=== PATIENT | female | born 1980 | race Caucasian/White ===

== ENCOUNTER 2016-12-16 05:40 | Inpatient (IN) | payer OTHER ==
[~2016-12-16] VITALS: Ht 167.6 cm; Wt 91.5 kg
[2016-12-16] VITALS (16 sets, daily range): BP systolic 130–150; BP diastolic 87–103; PULSE 60–84; RESP 16–22; O2SAT 96–100
--- NOTE | 2016-12-16 06:49 | NUR ---
Admit Patient arrived via ambulance from [facility] at 0630. A&Ox3, MARINELLI, ambulates independently. Patient stable on room air, denies current chest pain or shortness of breath. Admit documentation completed. Hospitalist paged for orders and report given to day shift RN.
[2016-12-16] MEDS ORDERED: Heparin 25K Unit/500mL 0.45 NS 25,000 UNIT in IV Premix 1 EACH IV SCH (07:00)
[2016-12-16] MEDS ORDERED: MeTOProlol 1 mg/mL 5 mL Inj IVPUSH STA (09:03)
[2016-12-16] MEDS ORDERED: Senna-Docusate 8.6-50 mg Tablet PO PRN (09:05)
[2016-12-16] MEDS ORDERED: Polyethylene Glycol (PEG) 17 Gm Powder PO PRN (09:05)
[2016-12-16] MEDS ORDERED: Ondansetron 2 mg/mL 2 mL Inj IVPUSH PRN ×2 (09:05→18:55)
[2016-12-16] MEDS ORDERED: Alum-Mag Hydrox-Simeth 30 mL Suspension PO PRN (09:05)
[2016-12-16] MEDS ORDERED: Atropine 1 mg/10 mL (Code) Syringe IVPUSH PRN ×2 (09:05→18:55)
--- NOTE | 2016-12-16 09:05 | NUR ---
Social Work- Initial Assessment Data: See Initial Assessment and DPOA Intervention for additional information. Pt is a 36 year old female admitted for NSTEMI. Pt screened in for assessment due to multiple providers involved in care. Pt's insurance is [employer] [facility]. Pt's PCP is Gina Harris at [facility]. Pt's readmit risk score is not listed at this time. SW met with pt and spouse at bedside regarding discharge plan, SW role explained. Pt alert and oriented x3. Pt's capacity for self-care assessed. Pt resides in [place] with her family ( and two children ages 16 and 14) in a home. Pt is independent with ADLs and self-care. No concerns identified. 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 Pt has no DPOA on file, Pt was provided DPOA paperwork at bedside. Pt will discharge home with spouse to transport via POV when medically cleared. SW provided phone number and plan on whiteboard. All agreeable to plan. Assessment: Pt who is independent with ADLs and self-care Plan: Pt will discharge home with spouse to transport via POV when medically cleared. No d/c needs anticipated. SW will follow. QIANA Mendez Addendum: 12/16/16 at 0908 by JUSTYNA BROWN Amended: Links added.
[2016-12-16 10:37] LABS: Magnesium 1.9 mg/dL (1.6-2.6)
--- NOTE | 2016-12-16 12:15 | CONS ---
[address] [address] CONSULTATION REPORT PATIENT: SANDRA SHAFER : 1980 MR#: [id number] ADMIT: 12/16/2016 JOB ID: [id number] DATE OF SERVICE: 12/16/2016 CHIEF COMPLAINT: Hospitalist team has consulted us on this patient given elevated troponin and chest pain. HISTORY OF PRESENT ILLNESS: The patient is a 36-year-old woman with no significant past medical history. 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 This was described as a heaviness and then her arms felt heavy and numb. Some radiation to the back. She had no significant shortness of breath and did not notice palpitations, presyncope, or syncope. No diaphoresis, nausea, or vomiting. She tried to see if the pain went away with stretching, however it did not resolve, and ultimately she went to [place] ED. In the ED she had no acute EKG changes, however her troponin was elevated, and because of this she was transferred here for further assessment. She says in the ED she was given aspirin and nitroglycerin, which did not help. Finally morphine did help with the pain. At this time she still has some residual discomfort but it is not too significant. She again denies any problems with increased shortness of breath. She tells me while walking out of her house to get to the car to go to the ED she had no chest worsening of the chest discomfort. PAST MEDICAL HISTORY/PROBLEM LIST: No medical problems. MEDICATIONS: Include an IUD. SOCIAL HISTORY: Former tobacco use but none now. No significant alcohol use. FAMILY HISTORY: Two grandparents with bypass surgery. She said her father had high blood pressure and drank, was an alcoholic that at age 57, but father did not have coronary disease and had hypertension. REVIEW OF SYSTEMS: Overall health: No fevers, chills, night sweats, or weight loss. GI: No problems with ulcers or blood in her stool. : No dysuria or hematuria. Pulmonary: No history of asthma or increased shortness of breath. Endocrine: No heat or cold intolerance. Musculoskeletal: No acute issues. Heme: No easy bruising or bleeding. Neuro: No chronic headaches. ENT: No difficulty swallowing. No hearing difficulties. Ophtho: No acute vision changes. Psych: There has been some stress related to her daughter not being selected for the varsity soccer team and her daughter is very good, participated in select teams, and her tells me that this may have been more stressful than they want to admit. All other review of systems on a 12-point review systems is negative. PHYSICAL EXAMINATION: Blood pressure 136/98. She is afebrile. Heart rate 60. Sats are 99% on room air. General: In no acute distress. Speaking in full sentences, without apparent shortness of breath. Head and neck: Normocephalic, atraumatic. Neck: No obvious JV distention. Heart: Regular rate and rhythm, without murmurs, gallops, or rubs appreciated. Lungs: Clear to auscultation. Back: No CVA tenderness to palpation. Abdomen: Soft, nontender. Extremities: Warm, no appreciable edema. Vascular: Carotids without bruits appreciated. Skin: No breakdown appreciated. Neurologic: Alert and oriented x3. Gait is not tested. Psych: Appropriate mood and affect. ENT: Hearing grossly intact. Ophtho: Vision intact. EKG is within normal limits. LABORATORIES: Labs show a sodium 140, potassium 3.7, chloride and bicarb 107 and 29 respectively. BUN and creatinine 17 and 0.6. LFTs within normal limits. TSH 2.83. BNP is normal. Troponin initially was 0.01 but trended upwards to 0.44. D-dimer not elevated. White count 9.1, H and H 11.7 and 33.7, platelets of 191,000. IMPRESSION: The patient had onset of typical chest pain yesterday not relieved with nitroglycerin, not associated with any acute EKG changes. A D-dimer was negative. Troponins did trend upward. She is feeling somewhat better at this time. PLAN: 1. I would continue on the heparin for now. We can keep her n.p.o. at this moment. 2. I think getting an echocardiogram will be important as we need to rule out a stress cardiomyopathy. I did discuss with the family that even if this is the case unless it is an unusual distribution we might proceed with cardiac catheterization to complete our assessment. However, I would I would like to get the echocardiogram first before we make any decisions regarding further assessment. I spent 30 minutes reviewing the patient's records, speaking with her, and discussing with the family. ALEKS
[2016-12-16] MEDS ORDERED: Heparin 10,000 Unit/1,000 mL NS Premix IV ONE (13:53)
[2016-12-16] MEDS ORDERED: Heparin 1,000 Units/500 mL NS Premix IV ONE (13:53)
[2016-12-16] MEDS ORDERED: Heparin 1,000 Unit/mL 10 mL Inj ONE (13:53)
--- NOTE | 2016-12-16 14:14 | PCM.HPMED ---
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 She states the chest pain pain currently rated 2 out of 10 feels more like pressure across her chest from armpit to armpit and radiates to her back. The patient also notes associated tingling and heaviness in her arms bilaterally which she states is the actual reason for her presentation to [facility]. The patient denies any changes in pain with position or deep inspiration. It was constant since onset and would be rated at 5 out of 10 at its worse. She has never had a previous episode of chest pain similar to this. She admits to vomiting two times on her way to the [facility] ER but denies bright red blood or coffee ground emesis. She denies diaphoresis, shortness of breath, cough, headache, or generalized weakness. She admits to recent travel to [place] but denies any leg swelling, lower extremity edema or tenderness. She uses a Mirena IUD for contraception and denies smoking or illicit or recreational drug use. She denies any new stressors or anxiety within the last month. She also denies any new workout routines that targeted towards her upper body. She has previously never noticed chest pain associated with exertion. At [facility] the patient was noted to have elevated troponins without associated ischemic ST or T-wave changes on ECG. At [facility] the patient was given sublingual nitroglycerin and the patient states that this did not really improve her chest pain. The patient was also given a dose of morphine which the patient states did improve her chest pain. The patient was transferred to [facility] for further cardiac evaluation. Review of Systems: A comprehensive review of systems was obtained and all negative except for what is included in the history of present illness. 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 Hx Alcohol Use: No Hx Substance Use: No Hx Tobacco Use: Yes Smoking Status: Former Smoker (quit 2008) Years of Smokin Living Arrangement: with Family Exam Vital Signs Vital Sign - Last Date Time Temp Pulse Resp B/P Pulse Ox O2 Delivery O2 Flow Rate FiO2 12/16/16 12:20 36.8 61 16 150/103 98 Room Air Exam General: Normal body habitus middle-aged female alert and cooperative in no acute distress Eyes: Pupils equal round and reactive to light, extraocular motion intact, anicteric sclera, noninjected conjunctiva HENT: Normocephalic atraumatic, moist mucous membranes without central cyanosis , oropharynx clear without purulent exudate or cobblestoning mucosa Neck: Supple, trachea midline, without thyromegaly, with mild JVD Cardiovascular: Regular rate and regular rhythm, S1-S2 present, no S3-S4, without murmurs rubs or gallops noted Lungs: Clear to auscultation bilaterally without wheezing rales or rhonchi Abdomen: Soft, nontender, nondistended, tympanic to percussion, normal active bowel sounds, without organomegaly Extremities: No cyanosis clubbing or edema noted, pulses intact bilaterally at dorsalis pedis and radial : No Win catheter in place Skin: Warm and dry Neuro: Nonfocal neurologic exam Psych: Normal mood and affect Lab and Diagnostics 12-lead ECG EKG from [facility] shows patient in normal sinus rhythm without ST changes or T-wave abnormalities consistent with ischemic event Assessment & Plan Sheri Kulkarni is a 36 year old female that presents with chest pressure that started at approximately 12:30 AM in the morning on December 15 while she was watching 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 # Acute Non-ST elevation myocardial infarction, present on admission - Differentials include viral Myocarditis, Stress Cardiomyopathy - Initial troponins and CK-MB are elevated and will be trended every 6 hours - Drug tox both urine and serum ordered for possible alternative explanation of early onset coronary artery disease - LUCÍA score of 3 because of her family HX, severe angina, and positive cardiac marker. Puts her at a 13% risk at 14 days of all-cause mortality, new or recurrent MS, severe recurrent ischemia requiring urgent revascularization. - Wells Score of 0, makes pulmonary embolus unlikely - Nitroglycerin PRN for pain, morphine when necessary if Nitroglycerin doesn't relieve symptoms. - ECGs available when necessary - Cardiology consult is active. - Lipid Panel and HgbA1C pending - Blood pressure management with metoprolol 5mg IV q6 to also decrease cardiac work, as well as enalapril 0.625 mg IV every 8 - The patient was initially started on a heparin drip at [facility] and this was continued - Patient has already received ASA 81 mg 4 while at [facility] - Initiate high-dose atorvastatin for stabilization - Echocardiogram ordered and pending to evaluate for wall motion abnormalities # Acute hypertension - Blood pressure management with metoprolol 5mg IV q6 to also decrease cardiac work, as well as enalapril 0.625 mg IV every 8 DVT prophylaxis: Heparin GGT GI prophylaxis: Not indicated at this time CODE STATUS full The patient is admitted to inpatient status with expected length of stay greater than 2 nights given presenting symptoms, likely diagnosis, possible complications, required treatment. Pain Evaluation: Adequate Pain Control GI Prophylaxis: Not indicated VTE Prophylaxis Indicated: Meets Criteria for Anticoag Therapy VTE Prophylaxis: Other (Heparin GGT) Resuscitation Status: CPR: Attempt Resuscitation Time spent 55 minutes Attending Statement I have seen and evaluated the patient at bedside in addition to directly supervising care provided by resident physician, Dr King. I agree with above documentation. Scot King DO Dec 16, 2016 14:14 Brian Fernando DO Dec 16, 2016 17:06
[2016-12-16] MEDS ORDERED: 0.9% Sodium Chloride 1,000 ML IV ONE (15:22)
[2016-12-16] MEDS ORDERED: diphenhydrAMINE 25 mg Capsule PO ONE (15:25)
[2016-12-16 15:30] LABS: BASOPHILS % (AUTO) 0.5 % (0-3); EOSINOPHILS % (AUTO) 1.8 % (0-5); MONOCYTES % (AUTO) 8.2 % (4-12); Mean Corpuscular Hemoglobin 28.3 pg (27.0-35.0); Mean Corpuscular Volume 84.5 fL (81-100); NEUTROPHILS % (AUTO) 54.9 % (40-74); Platelet Count 176 bil/L (150-400)
[2016-12-16] MEDS ORDERED: MeTOProlol 1 mg/mL 5 mL Inj IVPUSH SCH (15:30)
[2016-12-16] MEDS ORDERED: fentaNYL-PF 50 mCg/mL 2 mL Inj ONE (15:57)
[2016-12-16 16:07] LABS: TROPONIN T 0.086 ug/L (0.0-0.011)
[2016-12-16] MEDS: Sodium Chloride LOK Flush 10 mL Syringe IVFLUSH SCH (16:30)
--- NOTE | 2016-12-16 16:55 | NUR ---
Transfer to Legislative Aide Pt transferred to laboratory sample carrier for angiogram. Report called to [facility] for recovery. Addendum: 12/16/16 at 1657 by VANIA MENEZES RN Pt transported at 1550
--- NOTE | 2016-12-16 17:29 | NUR ---
Received Received from labor and delivery nurse about 1650. VSS. Denies pain. Tele SR. Right groin without bleeding or hematoma. Peripheral pulses palp. IVF infusing per order. to bedside. Continue to monitor per orders.
--- NOTE | 2016-12-16 17:32 | DRSVH ---
[facility] [address] [place] [address] Echocardiogram Report Name: SANDRA SHAFER MStudy Date : 12/16/2016 Height: 66 in Hospital Exam Location: [facility] Weight: 201 lb Gender: Female BSA: 2.0 m2 : 1980 Age: 36 yrs BP: 136/98 mmHg Reason For Study: Chest Pain Ordering Physician: Fariba Melendez Performed By: Dena Mcintyre Referring Physician: ZITA MELENDEZ Interpretation Summary 1. Normal left ventricular size, wall thickness and systolic function with an estimated EF of 60-65% 2. Normal right ventricular size and systolic function. 3. No valvular pathology appreciated. There is no old study for comparison Procedure: A two-dimensional transthoracic echocardiogram with color flow and Doppler was performed. The study quality was technically adequate. There is no prior echocardiogram noted for this patient. The patient was in normal sinus rhythm during the exam. Left Ventricle: The left ventricle is normal in size. Left ventricular wall thickness is normal. The ejection fraction is estimated to be 60-65%. No obvious wall motion abnormalities appreciated. Right Ventricle: The right ventricle is grossly normal size. The right ventricular systolic function is normal. Atria: The left atrium is mildly dilated. The right atrium is normal in size. The interatrial septum is intact with no evidence for an atrial septal defect. Mitral Valve: The mitral valve is normal in structure and function. There is trace mitral regurgitation. Aortic Valve: The aortic valve is trileaflet. The aortic valve opens well. There is no aortic regurgitation. Tricuspid Valve: The tricuspid valve is normal in structure and function. There is trace tricuspid regurgitation. The right ventricular systolic pressure is estimated at 27 mmHg assuming a right atrial pressure of 3 mm Hg. Pulmonic Valve: The pulmonic valve is normal in structure and function. There is trace pulmonic regurgitation. Great Vessels: The aortic root is normal size. The ascending aorta is at the upper limits of normal in size. The IVC is of normal diameter and collapses greater than 50% with a sniff. This suggests a low right atrial pressure of 3 mm Hg. Pericardium/ Pleura There is no pericardial effusion. There is no pleural effusion. MMode/2D Measurements & Calculations LVIDd: 4.8 cm RA long axis LVOT diam: 1.5 cm LVIDs: 3.3 cm LA A2 area: 19.1 cm asc Aorta Diam FS: 30.8 % LA A4 area: 24.8 cm RA area IVSd: 1.0 cm LA length (vol) Ao Arch Diam (Prox LVPWd: 0.89 cm : 12.2 cm Trans): 3.3 cm LA vol: 74.5 ml RA vol LA vol index : 24.1 ml RA : 12.0 mm2 IVC diam: 2.0 cm LV elkins. diameter/BSA LV sys. diameter/BSA TAPSE: 2.3 cm (cm/m^2): 2.4 (cm/m^2): 1.6 Doppler Measurements & Calculations Ao V2 max: 136.8 cm/sec MV E max stu MV E/A: 1.7 TR max stu Ao max P.5 mmHg : 98.9 cm/sec : 230.5 cm/sec Ao mean P.2 mmHg MV A max stu TR max PG LVOT Max Stu : 57.0 cm/sec : 21.3 mmHg : 102.6 cm/sec PA V2 max : 69.9 cm/sec CAYETANO(I,D): 1.3 cm PA mean PG sev ratio: 0.75 : 1.1 mmHg MV dec time: 0.16 sec Ao V2 mean LV V1 max PG PA V2 mean : 98.7 cm/sec : 50.2 cm/sec Ao V2 VTI: 31.2 cmLV V1 VTI PA pr(Accel) : 23.5 cm : 26.6 mmHg CAYETANO(V,D): 1.3 cm2 CAYETANO indexed to [facility] (cm^2/m^2): 0.66 Reading Physician:05:32 PM
--- NOTE | 2016-12-16 18:52 | NUR ---
Transfer No change in assessment. VSS. States mild soreness at groin site. Report to Gretta Khan RN. Transported to 2030 with and all belongings in no distress at 1830. Last WEI check done at bedside.
[2016-12-16] MEDS ORDERED: 0.9% Sodium Chloride 250 ML BOLUS IV PRN (18:55)
[2016-12-16] MEDS ORDERED: Sodium Chloride LOK Flush 10 mL Syringe IVFLUSH PRN (18:55)
[2016-12-16] MEDS ORDERED: 0.9% Sodium Chloride 600 ML IV ONE (18:55)
[2016-12-16] MEDS ORDERED: HYDROcodone-APAP 5-325 mg Tablet PO PRN (18:55)
--- NOTE | 2016-12-16 19:47 | CS94 ---
[address] [address] DIAGNOSTIC CARDIAC CATHETERIZATION PATIENT: SANDRA SHAFER : 1980 MR#: [id number] ADMIT: 12/16/2016 JOB ID: [id number] SERVICE DATE: 12/16/2016 PROCEDURES PERFORMED: Left heart catheterization with coronary angiography. INDICATIONS: This is a 36-year-old woman who presented with chest pain, elevated troponin, and no EKG changes. No obvious focal wall motion abnormalities on echocardiogram. DESCRIPTION OF PROCEDURE: Informed consent was obtained. The patient was brought to catheterization laboratory. Bilateral groins were prepped and draped in the usual sterile fashion. The right femoral artery was anesthetized with lidocaine. Using modified Seldinger technique and a micropuncture kit, access was obtained and a 5-Tongan sheath was advanced. Next, a 5-Tongan JL4 catheter was advanced over a wire and used to cannulate the left coronary artery and angiographic views obtained. This catheter was removed and a 5-Tongan JR4 catheter was advanced over a wire and used to cannulate the right coronary artery and angiographic views obtained. This catheter was removed and a 5-Tongan angled pigtail catheter was advanced to left ventricle under fluoroscopic guidance and left ventriculography was performed with the camera in the LOPEZ position. Next, left ventricular pressure tracings were obtained, and following pullback aortic pressure tracings were obtained. The case was ended. Hemostasis was achieved via manual compression and no complications. FINDINGS: CORONARIES: This is a left-dominant system. LAD: The left anterior descending artery has some minor narrowing at its ostium which may be within normal limits. The left anterior descending artery continues down, without evidence of obstructive lesions. The principal diagonal has no evidence of obstructive disease. Circumflex: The circumflex artery this is a dominant vessel. It gives rise to a first obtuse marginal branch which has no evidence of disease. The second obtuse marginal branch has a tubular segment of stenosis which does not appear hemodynamically significant. It appears in the range of 40%. It appears mostly smooth, but mildly ectatic. The vessel distal to this looks somewhat larger. There was LUCÍA-3 flow through this. The left PDA has no evidence of obstructive disease. RCA: The right coronary artery is a nondominant vessel. Left ventriculography: This shows overall preserved LV systolic function. Left ventricular end-diastolic pressure (post contrast) 20 mm with no gradient on pullback. IMPRESSION: 1. Left dominant system with angiographically normal coronary arteries except for a small tubular segment in the second obtuse marginal branch which is not flow limiting. This could be related to plaque and her symptoms could be related to associated spasm. Alternatively this could be related to a small area of spontaneous dissection (type 2A), but it is not flow limiting. Although further assessment could be considered, OCT given it higher resolution would be the tool of choice (this is not available). Alternatively, this could be an incidental finding with an underlying microvascular issue leading to her pain and elevated troponins. 2. Normal left ventricular size and systolic function. PLAN: We will treat her medically with Plavix and aspirin, statin and treat her blood pressure. We will monitor and see how she does through the next several days and trend the troponins to look for a rapid decrease. ALEKS
[2016-12-16] MEDS ORDERED: MeTOProlol 1 mg/mL 5 mL Inj IVPUSH PRN (20:25)
[2016-12-17 02:45] VITALS: BP 138/91; PULSE 75; RESP 16; O2SAT 98
[2016-12-17 02:53] LABS: BASOPHILS % (AUTO) 0.5 % (0-3); EOSINOPHILS % (AUTO) 2.1 % (0-5); MONOCYTES % (AUTO) 8.5 % (4-12); Mean Corpuscular Hemoglobin 28.4 pg (27.0-35.0); Mean Corpuscular Volume 85.3 fL (81-100); NEUTROPHILS % (AUTO) 57.3 % (40-74); Platelet Count 175 bil/L (150-400)
[2016-12-17 05:35] VITALS: PULSE 82
--- NOTE | 2016-12-17 06:02 | NUR ---
GROIN SITE Pt's groin site tender, shows no signs of hematoma. Indep. in room, VSS, no issues noted throughout the night.
[2016-12-17 07:29] VITALS: BP 118/85; PULSE 79; RESP 17; O2SAT 97
[2016-12-17] MEDS: Sodium Chloride LOK Flush 10 mL Syringe IVFLUSH SCH ×2 (07:42)
[2016-12-17 09:02] VITALS: PULSE 97
[2016-12-17] MEDS ORDERED: CLOP75TA3 PO (10:19)
[2016-12-17] MEDS ORDERED: ATOR20TA PO (10:19)
[2016-12-17] MEDS ORDERED: ASPI-973 PO (10:19)
[2016-12-17] MEDS ORDERED: METO25TA6 PO (10:19)
--- NOTE | 2016-12-17 10:27 | PCM.DIMED ---
Jai Maradiaga DO 12/17/16 1027: Discharge Instructions Date of Service Dec 17, 2016 Dates of Hospitalization Dec 16, 2016 at 06:27 Discharge Diagnosis Discharge Diagnosis Acute Non-ST elevation myocardial infarction Acute hypertension Medication Instructions Additional med instructions We would like you to take the following medications: Metoprolol 25 mg twice per day Aspirin 81 mg daily Plavix 75 mg daily Atorvastatin 20 mg daily Test Results Test Results Your echocardiogram showed no acute findings Your coronary catheterization appeared normal aside from a small tubular defect which was not flow-limiting Diet Discharge Diet: No restrictions Activity Discharge Activity: No restrictions Call your provider Call your provider for: Fever or Chills, Shortness of breath, Bleeding, Chest pain, Vomitting, Excessive diarrhea, Weakness (unilateral) Patient Instructions Patient Instructions All imaging modalities and procedural interventions at the hospital have not shown any specific reason for your chest pain or elevation in heart enzymes. Per cardiology this is possibly due to vasospasm or minor occlusion, however there is no intervention that is required at this time. Please take the medications listed above as described and follow-up with cardiology as appropriate. Follow-up plan Follow-up with cardiology within the next week for assessment and titration of medications as needed. Follow-up Provider: Kelli Navarro MD Follow-up with PCP in: 1 week Brian Fernando DO 12/17/16 1301: Discharge Instructions Attending's Statement Read and agree Jai Maradiaga DO Dec 17, 2016 10:27 Brian Fernando DO Dec 17, 2016 13:01
--- NOTE | 2016-12-17 11:20 | NUR ---
Social Work: Readiness for Discharge/Multidisciplinary Rounds D: EMR reviewed. Pt is on day 1 of hospitalization. Pt discussed in multidisciplinary rounds and is medically stable for discharge home today. No SW needs identified, no MD orders received. Pt's spouse to provide transport home via POV today. SW will continue to follow until time of discharge. A: Pt who is independent at baseline P: Pt to discharge home with spouse via POV. No SW needs identified, no MD orders received. SW will continue to follow until time of discharge. QIANA De Luna
--- NOTE | 2016-12-17 12:03 | NUR ---
Discharge 1203 - She discharged at this time with her and belongings. Before discharge her IV and telemetry were discontinued intact. Her IV site bled through the first gauze, pressure was applied, and a new gauze dressing was placed. Discussed and gave her the discharge paperwork (four hard copies of prescriptions, care notes, and instructions). She and her expressed concerns about how much stress she is under at the moment. Discussed ways of lowering stress with her such as yoga, meditation, etc. Answered her and her 's questions. They were escorted down to the outside of the hospital by this nurse. They thanked staff for their care.
--- NOTE | 2016-12-17 12:58 | NUR ---
Social Work: Discharge D: EMR reviewed. Pt is on day 1 of hospitalization. Pt discussed in multidisciplinary rounds and is medically stable for discharge home today. No SW needs identified, no MD orders received. Pt's spouse to provide transport home via POV today. A: Pt who is independent at baseline P: Pt discharged home with spouse today via POV. No SW needs identified, no MD orders received. QIANA De Luna
--- NOTE | 2016-12-17 19:58 | PCM.DC.MED ---
Discharge Summary Date of Service Dec 17, 2016 Dates of Hospitalization Date of Hospital Admission Dec 16, 2016 at 06:27 Date of Discharge: Dec 17, 2016 Providers: Admitting Physician: Jimy Vieyra MD Primary Care Physician: Gina Harris MD Attending Physician: Brian Fernando DO Diagnosis at Time of Discharge Diagnosis at Time of Discharge Acute Non-ST elevation myocardial infarction Acute hypertension Consultations Cardiology: Dr. Navarro Procedures ECG 12 Lead EKG from [facility] shows patient in normal sinus rhythm without ST changes or T-wave abnormalities consistent with ischemic event Cardiac Echo Impression Echocardiogram Interpretation Summary 1. Normal left ventricular size, wall thickness and systolic function with an estimated EF of 60-65% 2. Normal right ventricular size and systolic function. 3. No valvular pathology appreciated. There is no old study for comparison Reading Physician:05:32 PM Invasive Procedures DIAGNOSTIC CARDIAC CATHETERIZATION IMPRESSION: 1. Left dominant system with angiographically normal coronary arteries except for a small tubular segment in the second obtuse marginal branch which is not flow limiting. This could be related to plaque and her symptoms could be related to associated spasm. Alternatively this could be related to a small area of spontaneous dissection (type 2A), but it is not flow limiting. Although further assessment could be considered, OCT given it higher resolution would be the tool of choice (this is not available). Alternatively, this could be an incidental finding with an underlying microvascular issue leading to her pain and elevated troponins. 2. Normal left ventricular size and systolic function. 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 She states the chest pain pain currently rated 2 out of 10 feels more like pressure across her chest from armpit to armpit and radiates to her back. The patient also notes associated tingling and heaviness in her arms bilaterally which she states is the actual reason for her presentation to [facility]. The patient denies any changes in pain with position or deep inspiration. It was constant since onset and would be rated at 5 out of 10 at its worse. She has never had a previous episode of chest pain similar to this. She admits to vomiting two times on her way to the [facility] ER but denies bright red blood or coffee ground emesis. She denies diaphoresis, shortness of breath, cough, headache, or generalized weakness. She admits to recent travel to [place] but denies any leg swelling, lower extremity edema or tenderness. She uses a Mirena IUD for contraception and denies smoking or illicit or recreational drug use. She denies any new stressors or anxiety within the last month. She also denies any new workout routines that targeted towards her upper body. She has previously never noticed chest pain associated with exertion. At [facility] the patient was noted to have elevated troponins without associated ischemic ST or T-wave changes on ECG. At [facility] the patient was given sublingual nitroglycerin and the patient states that this did not really improve her chest pain. The patient was also given a dose of morphine which the patient states did improve her chest pain. The patient was transferred to [facility] for further cardiac evaluation. 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 Acute Non-ST elevation myocardial infarction, present on admission - Differentials include viral Myocarditis, Stress Cardiomyopathy - Initial troponins and CK-MB are elevated - Cardiology consulted Dr. Navarro to make recommendations - Aspirin 81 mg daily - Atorvastatin 20 mg - Echocardiogram shows normal ejection fraction, other results as above - Plavix 75 mg daily Acute hypertension -Metoprolol 25 mg twice a day for blood pressure management Exam Vital Signs (Last) Date Time Temp Pulse Resp B/P Pulse Ox O2 Delivery O2 Flow Rate FiO2 12/17/16 09:02 97 12/17/16 07:29 36.8 17 118/85 97 Room Air Exam General: No acute distress, well-developed, well-nourished Head: Normocephalic, atraumatic. External ears without defect. Eyes: Pupils equal, round, and reactive to light and accommodation. Anicteric sclerae, moist conjunctivae. Neck: Normal range of motion, no lymphadenopathy noted Cardiovascular: Regular rate and rhythm with no murmurs, rubs, or gallops appreciated Pulmonary: Clear to auscultation bilaterally with no crackles, wheezes, or rhonchi. Normal respiratory effort with no use of accessory muscles. Abdomen: Bowel tones present. Soft, nontender, nondistended. Extremities: No clubbing, cyanosis, edema Skin: Normal temperature, turgor, and texture; no rash, ulcers, or subcutaneous nodules appreciated. Neurological: Cranial nerves grossly intact. Reflexes, coordination, and sensory function within normal limits. Normal muscle strength, tone, and bulk. Psychiatric: Normal mood and affect. Alert and oriented to person, place, and time Test 12/16/16 09:33 12/16/16 12:55 12/16/16 15:00 12/17/16 02:40 Hemoglobin A1c 5.3% (4.8-5.6) Magnesium Level 1.9mg/dL (1.6-2.6) Triglycerides Level 77mg/dL (0-149) Cholesterol Level 196mg/dL (100-199) LDL Cholesterol, Calculated 129.600mg/dL (0-99) VLDL Cholesterol 15.400mg/dL HDL Cholesterol 51mg/dL (>39) Cholesterol/HDL Ratio 3.84 (0.0-4.4) Thyroid Stimulating Hormone (TSH) 2.500uIU/mL (0.450-4.500) Activated Partial Thromboplast Time 37.8sec (22.8-33.0) Total Creatine Kinase 99U/L (21-215) Creatine Kinase MB 7.4ng/mL (0.0-5.3) Creatine Kinase MB % 7.5% (0.0-5.0) White Blood Count 8.0th/mm3 (3.8-10.1) Red Blood Count 4.02mil/mm3 (3.90-5.20) Hemoglobin 11.4g/dL (12.0-15.6) Hematocrit 34.3% (35.0-46.0) Mean Corpuscular Volume 85.3fL (81-100) Mean Corpuscular Hemoglobin 28.4pg (27.0-35.0) Mean Corpuscular Hemoglobin Concent 33.2% (32.0-37.0) Red Cell Distribution Width 12.1% (12.3-15.4) Platelet Count 175bil/L (150-400) Neutrophils (%) (Auto) 57.3% (40-74) Lymphocytes (%) (Auto) 31.5% (14-46) Monocytes (%) (Auto) 8.5% (4-12) Eosinophils (%) (Auto) 2.1% (0-5) Basophils (%) (Auto) 0.5% (0-3) Sodium Level 138mEq/L (134-144) Potassium Level 4.0mEq/L (3.5-5.2) Chloride Level 105mEq/L (97-108) Carbon Dioxide Level 20mmol/L (18-29) Blood Urea Nitrogen 11mg/dL (6-20) Creatinine 0.50mg/dL (0.57-1.00) Estimat Glomerular Filtration Rate 198mL/min (>59) Glucose Level 121mg/dL (60-99) Calcium Level 8.7mg/dL (8.5-10.1) Test 12/17/16 08:23 Troponin T 0.030ug/L (0.0-0.011) Discharge Medications Discharge Medications Aspirin (Aspirin) 81 Mg Tablet 81 MG PO DAILY Prescribed by: OLEG WOLFE, DO Atorvastatin (Lipitor) 20 Mg Tablet 20 MG PO DAILY Prescribed by: OLEG WOLFE, DO Clopidogrel Bisulfate (Plavix) 75 Mg Tablet 75 MG PO DAILY Prescribed by: OLEG WOLFE, DO Metoprolol Tartrate (Metoprolol Tartrate) 25 Mg Tablet 25 MG PO BID Prescribed by: OLEG WOLFE, DO Additional med instructions We would like you to take the following medications: Metoprolol 25 mg twice per day Aspirin 81 mg daily Plavix 75 mg daily Atorvastatin 20 mg daily Followup Plan Disposition: Home Follow-up plan Follow-up with cardiology within the next week for assessment and titration of medications as needed. Discharge Diet: No restrictions Discharge Activity: No restrictions Patient Instructions All imaging modalities and procedural interventions at the hospital have not shown any specific reason for your chest pain or elevation in heart enzymes. Per cardiology this is possibly due to vasospasm or minor occlusion, however there is no intervention that is required at this time. Please take the medications listed above as described and follow-up with cardiology as appropriate. Follow-up Provider: Kelli Navarro MD Follow-up with PCP in: 1 week Provider: Gina Harris MD Time spent Greater than 35 minutes spent on documentation and coordination of discharge. Attending Statement I have seen and evaluated patient at bedside in addition to directly supervising care provided by resident physician Dr Wolfe for care provided on . I agree with above documentation copies to: Gina Harris MD, Adam J DO Dec 17, 2016 19:58 Brian Fernando DO Dec 18, 2016 08:04
== END 2016-12-17 12:07 | disposition home or self-care (01) | DRG 282 ==
LOC: PCC 06:27
PROVIDERS: ADMIT Hospitalist; ATTEND Family Medicine
PROC: 4A023N7 Measurement of Cardiac Sampling and Pressure, Left Heart, Percutaneous Approach (ICD-10-PCS; principal; 2016-12-16)
PROC: B2111ZZ Fluoroscopy of Multiple Coronary Arteries using Low Osmolar Contrast (ICD-10-PCS; 2016-12-16)
DX: I21.4 Non-ST elevation (NSTEMI) myocardial infarction (principal); I10 Essential (primary) hypertension

== ENCOUNTER 2016-12-19 22:02 | Inpatient (IN) | payer OTHER ==
[~2016-12-19] VITALS: Ht 167.6 cm; Wt 91.9 kg
[~2016-12-19 22:02] MED LIST: ASPI-973 PO; ATOR20TA PO; CLOP75TA3 PO; METO25TA6 PO
[2016-12-19 22:07] VITALS: BP 180/136; PULSE 80; RESP 16; O2SAT 100
--- NOTE | 2016-12-19 22:21 | ED.REPORT ---
HPI-General Illness Date of Service Dec 19, 2016 ED Provider: Chris Varela MD A 36 year old female with a history of hypertension and NSTEMI presents to the ED complaining of chest pain. The pain is described as a sharp pain radiating to her back that began while the pt was sitting down at work today. This has been accompanied by abnormally high blood pressure, though her usual blood pressures have been approximately 150/110. She just began taking Metoprolol recently and has taken one dose of Plavix. The pt denies nausea, vomiting, cough , heartburn pain or lower extremity edema. The pt was seen in the ED on 2016 and diagnosed with a "minor heart attack." Her pain was similar at that point to the pain she has experienced today. She had a cardiac catheterization at that time and has a follow up appointment with cardiology on 12/22/2016. Nursing Notes Stated Complaint: HIGH BP Chief Complaint: Chest Pain Nursing Notes Reviewed: Yes Allergies: Coded Allergies: No Known Allergies (Unverified , 12/16/16) Scheduled Aspirin (Aspirin) 81 Mg Tablet 81 MG PO DAILY Atorvastatin (Lipitor) 20 Mg Tablet 20 MG PO DAILY Clopidogrel Bisulfate (Plavix) 75 Mg Tablet 75 MG PO DAILY Metoprolol Tartrate (Metoprolol Tartrate) 25 Mg Tablet 25 MG PO BID Vit C/E/Zn/Coppr/Lutein/Zeaxan (Preservision Areds 2 Softgel) 1 Each Capsule 1 EACH PO BID General Time Seen by MD: 22:21 Chief Complaint Chest pain Hx Obtained From: Patient Arrived By: Walk-in Sudden in Onset?: Yes Onset Occurred: 1 - 4 hours ago Recent Healthcare: Recent doctor visit, Recent hospitalization Similar Sx Previous: Yes Past Medical History Past Medical History NSTEMI 12/16/2016 hypertension UTI Past Surgical History cardiac catheter 12/16/2016 Smoking History Former Smoker (quit 2008) Social History Other Social History: Good social support Ambulatory Status Independent Review of Systems denies heartburn pain denies lower extremity edema Full Review of Systems Respiratory: Denies: Non-productive cough, Shortness of breath Cardiovascular: Reports: Chest pain GI: Denies: Abdominal pain, Nausea, Vomiting Musculoskeletal: Reports: Back pain, Denies: Neck pain Skin: Denies Rash Complete sys rev & neg: except as marked. Physical Exam Vital Signs Vital Signs Date Time Temp Pulse Resp B/P Pulse Ox O2 Delivery O2 Flow Rate FiO2 12/19/16 23:46 65 17 148/103 98 Room Air 12/19/16 22:48 62 11 153/104 98 Room Air 12/19/16 22:07 36.4 80 16 180/136 100 Room Air Initial VS: Reviewed General/Constitutional: Awake, Alert Head / Eyes: Atraumatic, Normocephalic, PERRL, EOMI ENT: Atraumatic, Airway patent, Mucous membranes moist Neck: Atraumatic, Supple, Full range of motion Respiratory / Chest: Atraumatic, Breath sounds NL, Breath sounds = bilat, No respiratory distress Cardiovascular: Heart rate NL, Regular rhythm, Heart sounds NL Abdomen: Atraumatic, Soft, Non-tender Back: Atraumatic, Full range of motion Upper Extremities Upper Extremity / MS: Atraumatic, Full range of motion Lower Extremity / Pelvis / MS: Atraumatic, Full range of motion Skin: Atraumatic, Color NL, No rash, Warm, Dry Neurologic: Oriented X3, Speech NL, No motor deficits, No sensory deficits Psychiatric: Affect NL, Mood NL Interpretation & Diagnostics Interpretation & Diagnostics: Cardiac Catheterization 12/16/2016: IMPRESSION: 1. Left dominant system with angiographically normal coronary arteries except for a small tubular segment in the second obtuse marginal branch which is not flow limiting. This could be related to plaque and her symptoms could be related to associated spasm. Alternatively this could be related to a small area of spontaneous dissection (type 2A), but it is not flow limiting. Although further assessment could be considered, OCT given it higher resolution would be the tool of choice (this is not available). Alternatively, this could be an incidental finding with an underlying microvascular issue leading to her pain and elevated troponins. 2. Normal left ventricular size and systolic function. Lab Results Interpretation Result Diagram: 12/20/16 0530 12/19/16 2229 Test 12/19/16 22:29 12/19/16 22:42 Magnesium Level 1.8mg/dL (1.6-2.6) Total Bilirubin 0.4mg/dL (0.0-1.2) Aspartate Amino Transf (AST/SGOT) 20U/L (0-50) Alanine Aminotransferase (ALT/SGPT) 12U/L (0-32) Alkaline Phosphatase 89U/L (25-150) Pro-B-Type Natriuretic Peptide 84.19pg/mL (0-130) Total Protein 7.0g/dL (6.4-8.4) Albumin 4.1g/dL (3.4-5.0) Hold Cullen Top Tube Received (Received) Lab Results Interpretation: Troponin: 0.086 ECG Interpretation ECG Interpretation: normal sinus rhythm with a rate of 61 Time: 22:18 Interpreted by: ED physician X-Ray Chest Interpretation Chest Xray Interpretation: no acute findings Interpretation / Wet Read by: Wet read ED physician Re-Eval/Medical Decision Med Decision/Clinical Course 36-year-old female presents just a few days after an episode of chest pain and hypertension, during which she had a release of troponin. Catheterization showed a small concentric area of 40% stenosis and as second obtuse marginal branch. Whether this is a site of spasm and Prinzmetal's angina is not clear. Her troponin is again risen to 0.08. EKG is completely normal. She is admitted now for further evaluation and management. Blood pressure control B Johnson. Given amlodipine 5 mg here. Nitroglycerin given without much effect. Transported in stable condition. Source of Hx: Old records Time of Eval: 22:53 Patient Status: Condition improved Re-Evaluation/Progress Note: Pt rechecked, who is resting comfortably. She is informed of cardiology consult. The diagnosis and plan for admission are discussed. The pt understands and agrees with the plan. All questions are addressed at this time. Consultation #1: Referral / Consult Name: Radha Uribe MD Consulted With: Cardiology Call Returned at: 22:49 [place] Hand: Agrees with evmikael, Agrees with plan Note: Consulted with Dr. Uribe, cardiology, regarding pt's case. Dr. Uribe agrees with the evaluation and plan. Consultation #2: Referral / Consult Name: Jimy Vieyra MD Consulted With: Hospitalist Call Returned at: 23:08 [place] Hand: Agrees with evmikael, Agrees with plan, Accepts admit Note: Spoke with Dr. Vieyra, hospitalist, regarding pt's case. Dr. Vieyra agrees with the evaluation and agrees to admit the pt. Counseled Regarding: Diagnosis, Lab results, Need for admission Discharge & Departure Primary Impression: Chest pain Chest pain type: unspecified Qualified Code: R07.9 - Chest pain, unspecified Additional Impressions: Hypertension Hypertension type: unspecified secondary hypertension Qualified Code: I15.9 - Secondary hypertension, unspecified Elevated troponin Disposition: ADMITTED TO HOSPITAL Discharge Condition All VS Reviewed: Yes Condition: Stable Referrals: Gina Harris MD (PCP) Kelli Navarro MD Scribe Attestation Portions of this note were transcribed by Albino Berry. I, Dr. Varela personally performed the history, physical exam and medical decision-making; I reviewed and confirmed the accuracy of the information in the transcribed note. copies to: Kelli Navarro MD; Gina Harris MD, Christopher W MD Dec 19, 2016 22:21 ALBINO BERRY Dec 19, 2016 22:29 Total Protein 7.0g/dL (6.4-8.4) Albumin 4.1g/dL (3.4-5.0) Hold Cullen Top Tube Received (Received) Lab Results Interpretation: Troponin: 0.086 ECG Interpretation ECG Interpretation: normal sinus rhythm with a rate of 61 Time: 22:18 Interpreted by: ED physician X-Ray Chest Interpretation Chest Xray Interpretation: no acute findings Interpretation / Wet Read by: Wet read ED physician Re-Eval/Medical Decision Source of Hx: Old records Time of Eval: 22:53 Patient Status: Condition improved Re-Evaluation/Progress Note: Pt rechecked, who is resting comfortably. She is informed of cardiology consult. The diagnosis and plan for admission are discussed. The pt understands and agrees with the plan. All questions are addressed at this time. Consultation #1: Referral / Consult Name: Radha Uribe MD Consulted With: Cardiology Call Returned at: 22:49 [place] Hand: Agrees with eval, Agrees with plan Note: Consulted with Dr. Uribe, cardiology, regarding pt's case. Dr. Uribe agrees with the evaluation and plan. Consultation #2: Referral / Consult Name: Jimy Vieyra MD Consulted With: Hospitalist Call Returned at: 23:08 [place] Hand: Agrees with eval, Agrees with plan, Accepts admit Note: Spoke with Dr. Vieyra, hospitalist, regarding pt's case. Dr. Vieyra agrees with the evaluation and agrees to admit the pt. Counseled Regarding: Diagnosis, Lab results, Need for admission Discharge & Departure Primary Impression: Chest pain Chest pain type: unspecified Qualified Code: R07.9 - Chest pain, unspecified Additional Impressions: Hypertension Hypertension type: unspecified secondary hypertension Qualified Code: I15.9 - Secondary hypertension, unspecified Elevated troponin Disposition: ADMITTED TO HOSPITAL Discharge Condition All VS Reviewed: Yes Condition: Stable Referrals: Gina Harris MD (PCP) Kelli Navarro MD Scribe Attestation Portions of this note were transcribed by Albino Berry. I, Dr. Varela personally performed the history, physical exam and medical decision-making; I reviewed and confirmed the accuracy of the information in the transcribed note. copies to: Kelli Navarro MD; Gina Harris MD, Christopher W MD Dec 19, 2016 22:21 ALBINO BERRY Dec 19, 2016 22:29
[2016-12-19 22:34] LABS: BASOPHILS % (AUTO) 0.4 % (0-3); EOSINOPHILS % (AUTO) 1.8 % (0-5); Mean Corpuscular Hemoglobin 28.5 pg (27.0-35.0); Mean Corpuscular Volume 83.8 fL (81-100); NEUTROPHILS % (AUTO) 59.6 % (40-74); Platelet Count 203 bil/L (150-400)
[2016-12-19 22:48] VITALS: BP 153/104; PULSE 62; RESP 11; O2SAT 98
[2016-12-19] MEDS ORDERED: Ondansetron 2 mg/mL 2 mL Inj IVPUSH PRN (23:15)
[2016-12-19] MEDS ORDERED: Senna-Docusate 8.6-50 mg Tablet PO PRN (23:15)
[2016-12-19] MEDS ORDERED: Atropine 1 mg/10 mL (Code) Syringe IVPUSH PRN (23:15)
[2016-12-19] MEDS ORDERED: Alum-Mag Hydrox-Simeth 30 mL Suspension PO PRN (23:15)
[2016-12-19] MEDS ORDERED: Polyethylene Glycol (PEG) 17 Gm Powder PO PRN (23:15)
[2016-12-19 23:17] LABS: Magnesium 1.8 mg/dL (1.6-2.6)
[2016-12-19 23:23] LABS: TROPONIN T 0.086 ug/L (0.0-0.011)
[2016-12-19 23:46] VITALS: BP 148/103; PULSE 65; RESP 17; O2SAT 98
[2016-12-19 23:52] VITALS: BP 148/103; PULSE 65; RESP 17; O2SAT 98
[2016-12-20] VITALS (28 sets, daily range): BP systolic 104–158; BP diastolic 66–102; PULSE 59–98; RESP 11–24; O2SAT 96–100
[2016-12-20] MEDS: Sodium Chloride LOK Flush 10 mL Syringe IVFLUSH SCH ×4 (00:35→20:18)
--- NOTE | 2016-12-20 00:46 | PCM.HPMED ---
Subjective Date of Service Dec 20, 2016 Primary Provider: Admitting Physician: Jimy Vieyra MD Primary Care Physician: Gina Harris MD Attending Physician: Jimy Vieyra MD Admit Status: From the Emergency Department, Full Admit, [facility] Telemetry Chief Complaint: Chest pain History of Present Illness: Sheri Kulkarni is a 36 year old female with recently diagnosed Non ST elevation Myocardial infarction and Hypertension now presents to [facility] emergency department complaining of chest pain. The patient was at work and was sitting down when she felt acute onset of chest pain. She describes it as a sharp pain radiating to her back, similar to her previous chest pain. Denies any diaphoresis or dyspnea. The pt denies nausea, vomiting, cough, heartburn pain or lower extremity edema. This has been accompanied by abnormally high blood pressure (she has been taking her BP since discharged and has been elevated, approximately 150/110). She just began taking Metoprolol recently and has taken one dose of Plavix. Case discussed with Dr Varela, BP still elevated. He spoke to Dr Uribe who recommended adding Amlodipine. Troponin also elevated and patient will be admitted for trending troponin and BP management Review of Systems: Pertinent positives as noted in HPI. All other systems were reviewed and are negative Allergies Coded Allergies: No Known Allergies (Unverified , 12/16/16) Home Medications From latest Discharge Summary Aspirin (Aspirin) 81 Mg Tablet 81 MG PO DAILY Prescribed by: OLEG WOLFE, Atorvastatin (Lipitor) 20 Mg Tablet 20 MG PO DAILY Prescribed by: OLEG WOLFE DO Clopidogrel Bisulfate (Plavix) 75 Mg Tablet 75 MG PO DAILY Prescribed by: OLEG WOLFE, Metoprolol Tartrate (Metoprolol Tartrate) 25 Mg Tablet 25 MG PO BID Prescribed by: OLEG WOLFE, [facility] Hypertension Non St elevation Myocardial infarction. Cath showed small tubular segment in the second obtuse marginal branch which is not flow limiting. Dr Navarro recommended medical therapy . Surgical History None Family History Father at 57 from hematologic cancer Mother hypertension, hyperlipidemia, type II diabetes, Obesity Paternal Grandfather with coronary artery disease from [place] in his 60s Maternal grandfather with coronary artery disease with four-vessel CABG in his 60s Social History Hx Alcohol Use: No Hx Substance Use: No Hx Tobacco Use: Yes Smoking Status: Former Smoker (quit 2008) Living Arrangement: with Family Exam Vital Signs Vital Sign - Last Date Time Temp Pulse Resp B/P Pulse Ox O2 Delivery O2 Flow Rate FiO2 12/20/16 00:18 59 12/20/16 00:16 36.5 18 133/97 99 Room Air Exam General: Alert, Oriented X3, Cooperative, No acute Distress Eyes: PERRLA, Scleral Anicteric Mouth: Mouth Normal, Mucous Membranes Moist/[place] Neck: Supple, no Thyromegaly, trachea central. Chest & Lungs: Clear to auscultation & percussion, No adventitious breath sounds, no crackles, no wheeze Cardiovascular: Normal S1, Normal S2, No Murmurs/Rubs/Gallops, Regular Rate/ Rhythm, (No JVD, no peripheral edema) Pulses: Radial (present and equal), Dorsalis Pedi (present and equal) Abdomen: Soft, Non-tender, Non-distended, Normoactive bowel tones. Musculoskeletal: Unremarkable. Normal range of motion, no swollen or erythematous joints Extremities: No edema, no cyanosis, no clubbing. Skin: No rashes. Warm and dry, no erythematous areas Neurological: Grossly neurologically intact, Normal Speech, Sensation Intact Lymphatic: Lymph nodes Cervical and Axillary not palpable. Lab and Diagnostics Labs Laboratory Tests Test 12/19/16 22:29 12/19/16 22:42 White Blood Count 10.1th/mm3 (3.8-10.1) Red Blood Count 4.31mil/mm3 (3.90-5.20) Hemoglobin 12.3g/dL (12.0-15.6) Hematocrit 36.1% (35.0-46.0) Mean Corpuscular Volume 83.8fL (81-100) Mean Corpuscular Hemoglobin 28.5pg (27.0-35.0) Mean Corpuscular Hemoglobin Concent 34.1% (32.0-37.0) Red Cell Distribution Width 11.8% (12.3-15.4) Platelet Count 203bil/L (150-400) Neutrophils (%) (Auto) 59.6% (40-74) Lymphocytes (%) (Auto) 29.0% (14-46) Monocytes (%) (Auto) 9.0% (4-12) Eosinophils (%) (Auto) 1.8% (0-5) Basophils (%) (Auto) 0.4% (0-3) Sodium Level 140mEq/L (134-144) Potassium Level 3.7mEq/L (3.5-5.2) Chloride Level 103mEq/L (97-108) Carbon Dioxide Level 23mmol/L (18-29) Blood Urea Nitrogen 16mg/dL (6-20) Creatinine 0.61mg/dL (0.57-1.00) Estimat Glomerular Filtration Rate 157mL/min (>59) Glucose Level 95mg/dL (60-99) Calcium Level 9.1mg/dL (8.5-10.1) Magnesium Level 1.8mg/dL (1.6-2.6) Total Bilirubin 0.4mg/dL (0.0-1.2) Aspartate Amino Transf (AST/SGOT) 20U/L (0-50) Alanine Aminotransferase (ALT/SGPT) 12U/L (0-32) Alkaline Phosphatase 89U/L (25-150) Troponin T 0.086ug/L (0.0-0.011) Pro-B-Type Natriuretic Peptide 84.19pg/mL (0-130) Total Protein 7.0g/dL (6.4-8.4) Albumin 4.1g/dL (3.4-5.0) Hold Cullen Top Tube Received (Received) Result Diagram: 12/19/16222812/19/162228 Assessment & Plan Sheri Kulkarni is a 36 year old female with recently diagnosed Non ST elevation Myocardial infarction and Hypertension now presents to [facility] emergency department complaining of chest pain 1. Acute Chest pain with recent Non-ST elevation myocardial infarction, present on admission Patient was found to have small tubular segment in the second obtuse marginal branch which is not flow limiting. Possible spasm was suspected and Dr Navarro recommended dual antiplatelet, beta tommie ans statin. Drug screen showed no cocaine abuse. Concern is that troponin level is high than her last one prior to discharge - trending Cardiac biomarkers overnight - no indications for Heparin drip at this time - continue antiplatelet therapy with Aspirin 81 mg daily and Plavix 75 mg daily - continue Atorvastatin 20 mg 2 Uncontrolled hypertension. Present on admission - continue Metoprolol 25 mg twice a day - adding Amlodipine 10 mg daily, additional effect in helping with coronary spasm - Acetaminophen as needed for mild pain/fever/headache - Bowel regimen as needed - Antiemetic as needed Patient admitted under inpatient status with expected length of stay > 2 midnights for severity of present symptoms, complexities of treatment plan and risk for adverse event . Resuscitation Status: CPR: Attempt Resuscitation Jimy Vieyra MD Dec 20, 2016 00:38
[2016-12-20] MEDS ORDERED: VIT1CAPS46 PO (01:06)
[2016-12-20] MEDS: 0.9% Sodium Chloride 1,000 ML IV SCH ×3 (01:12→19:26)
[2016-12-20 01:49] LABS: TROPONIN T 0.129 ug/L (0.0-0.011)
--- NOTE | 2016-12-20 06:29 | NUR ---
Patient admitted to [facility] 0015 from ED with chest pain. at bedside, patient stable, BP WNL after coming into the ED with hypertension. IV morphine 2mg given, chest and back pain resolved, patient able to sleep through the night. Critical troponin and CKMB paged to Physician. Plan to medically manage chest pain.
[2016-12-20 06:30] LABS: BASOPHILS % (AUTO) 0.4 % (0-3); EOSINOPHILS % (AUTO) 1.2 % (0-5); MONOCYTES % (AUTO) 9.1 % (4-12); Mean Corpuscular Hemoglobin 28.7 pg (27.0-35.0); Mean Corpuscular Volume 84.4 fL (81-100); NEUTROPHILS % (AUTO) 66.6 % (40-74); Platelet Count 184 bil/L (150-400)
[2016-12-20 07:40] LABS: TROPONIN T 0.136 ug/L (0.0-0.011)
--- NOTE | 2016-12-20 08:12 | DRSVH ---
PROCEDURE: X-RAY CHEST ONE VIEW, PORTABLE ([id number]) INDICATIONS: CP TECHNIQUE: One view of the chest was acquired. COMPARISON: None. FINDINGS: Surgical changes and devices: None. Lungs and pleura: No pleural effusions or pneumothorax. Lungs are clear. Mediastinum: Mediastinal contours appear normal. Heart size is normal. Bones and chest wall: No suspicious bony lesions. Overlying soft tissues appear unremarkable. IMPRESSION: No radiographic evidence of acute cardiopulmonary pathology. Dictated by: David Hendricks M.D. on 12/20/2016 at 8:10 Approved by: David Hendricks M.D. on 12/20/2016 at 8:11
--- NOTE | 2016-12-20 10:54 | PCM.PNMED ---
Subjective Date of Service Dec 20, 2016 Subjective Sheri Kulkarni is a 36 year old female with recently diagnosed Non ST elevation Myocardial infarction and Hypertension now presents to [facility] emergency department complaining of chest pain. Patient underwent a cardiac catheterization on 12/16/16 and was found to have a small tubular segment in the second obtuse marginal branch to his normal flow limiting and was sent home with medical management, including aspirin 81 mg, Plavix 75 mg, atorvastatin 20 mg and metoprolol titrate 25 mg by mouth twice a day. This morning, patient denies chest pain. She notes that last night, she received morphine and that is when her chest pain resolved. Her EKG showed normal sinus rhythm. Her troponins were trending up this morning. Cardiology will be doing as a cardiac catheterization later this morning. On Review of systems, patient currently denies headaches, visual changes, chest pain, shortness of breath, nausea, vomiting, abdominal pain. Exam Vital Signs Vital Sign - Last Date Time Temp Pulse Resp B/P Pulse Ox O2 Delivery O2 Flow Rate FiO2 12/20/16 07:41 36.8 66 13 150/97 98 Room Air Intake and Output 12/19/16 12/19/16 12/20/16 Cumulative From/Thru 15:00 23:00 07:00 12/19/16 22:07 - 12/20/16 06:34 Intake Total 608 ml 608 ml Output Total 700 ml 700 ml Balance -92 ml -92 ml Intake Oral 200 ml 200 ml IV Total 408 ml 408 ml Output Urine Total 700 ml 700 ml # Voids 1 1 Exam General: Patient is lying comfortably on bed, AAOX3, not in acute distress, cooperative and pleasant. HEENT: head normocephalic and atraumatic, PERRLA, EOMI, no scleral icterus, noninjected conjunctiva Neck: neck supple, non-tender, no lymphadenopathy, trachea midline, no JVD CV: regular rate and rhythm, s1 and s2 heard, no murmur, radial pulses 2+ and equal bilaterally, no rubs murmurs or gallops, no edema Lungs: Clear to auscultation bilaterally, no wheezes, rales or rhonchi, no increased work of breathing Abdomen: normoactive bowel sounds on 4Q, soft, non-distended, non-tender to palpation, no organomegally, Skin: warm and dry Musculoskeletal: 5/5 UE and LE strength bilaterally, full ROM bilaterally Neuro: Grossly neurologically intact, cranial nerves II through XII intact, sensation intact in extremities Psych: Normal mood and affect IVs and Medications Medications Reviewed: Medications were reviewed in detail Lab and Diagnostics Result Diagram: 12/20/16 0530 12/20/16 05 X-Rays, CTs and MRIs Chest x-ray IMPRESSION: No radiographic evidence of acute cardiopulmonary pathology. Dictated by: David Hendricks M.D. on 12/20/2016 at 8:10 Approved by: David Hendricks M.D. on 12/20/2016 at 8:11 Additional Diagnostics Cardiac catheterization: IMPRESSION: Evidence for progression to a high-grade stenosis of the stenosis appreciated in the second obtuse marginal branch, which did not improve with balloon dilation and required stenting. Kelli Navarro MD 12/20/16 1712 Assessment & Plan Sheri Kulkarni is a 36 year old female with recently diagnosed Non ST elevation Myocardial infarction and Hypertension now presents to [facility] emergency department complaining of chest pain 1. Acute Chest pain with recent Non-ST elevation myocardial infarction, present on admission Patient was found to have small tubular segment in the second obtuse marginal branch which is not flow limiting. Possible spasm was suspected and Dr Navarro recommended dual antiplatelet, beta tommie and statin. Drug screen showed no cocaine abuse. Concern is that troponin level is high than her last one prior to discharge - trending Cardiac biomarkers overnight - no indications for Heparin drip at this time - continue antiplatelet therapy with Aspirin 81 mg daily and Plavix 75 mg daily - continue Atorvastatin 20 mg -Cardiology was consulted and their input is appreciated -She underwent another cath with Dr. Navarro today. She found evidence for progression to a high-grade stenosis of the stenosis appreciated in the second obtuse marginal branch, which did not improve with balloon dilation and required stenting. 2 Uncontrolled hypertension. Present on admission - continue Metoprolol 25 mg twice a day - adding Amlodipine 10 mg daily, additional effect in helping with coronary spasm - Acetaminophen as needed for mild pain/fever/headache - Bowel regimen as needed - Antiemetic as needed Patient admitted under inpatient status with expected length of stay > 2 midnights for severity of present symptoms, complexities of treatment plan and risk for adverse event . Pain Evaluation: Adequate Pain Control VTE Prophylaxis: Other (patient is on Plavix) Resuscitation Status: CPR: Attempt Resuscitation Attending Statement The patient was seen and examined together with Dr. Cohen on 12/20/2016 and I agree with the history, exam and plan as outlined in the note above. . Kristin Cohen DO Dec 20, 2016 10:54 Dario Thomas MD Dec 22, 2016 07:47
--- NOTE | 2016-12-20 10:58 | NUR ---
Social Work: Initial Assessment/Multidisciplinary Rounds D: Per EMR review, p tis a 36 year old female admitted for chest pain, elevated troponin. Pt is [facility]; pt has no supplement, LTC or VA benefits. PCP is Gina Harris MD. NOK is Maday Kulkarni, spouse [phone]. Readmit score not entered at this time. Pt is a readmission for 12/17 discharged home with no Sw needs. Pt discussed in Multidisciplinary rounds. Capacity for self care discussed; no concerns or needs at this time. 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 MULE OPERATOR met with patient at bedside. explosives worker role explained, contact information and discharge planning checklist provided. See initial assessment. Pt confirms that she still lives in [place] with her family. She is I with all ADLs and self care with the use of no DME. Pt has never had HH or skilled rehab. No concerns or barriers to d/c identified at this time. Pt's spouse will transport. A: Pt who is I with all ADLs at baseline. P: Anticipate pt to discharge home via POV once medically stable; MULE OPERATOR to continue to follow to assess for unmet needs. QIANA Omalley Addendum: 12/20/16 at 1102 by ZULEIMA GARCIA Amended: Links added.
[2016-12-20] MEDS ORDERED: Labetalol 5 mg/mL 20 mL Inj IVPUSH ONE (11:05)
--- NOTE | 2016-12-20 12:00 | NUR ---
Pt off unit to [facility]. recreational therapy technician notified
[2016-12-20] MEDS ORDERED: Nitroglycerin 50,000 mcg/250 mL D5W Premix IV ONE ×2 (12:39→15:13)
[2016-12-20] MEDS ORDERED: Heparin 1,000 Unit/mL 10 mL Inj ONE (12:39)
[2016-12-20] MEDS ORDERED: Heparin 10,000 Unit/1,000 mL NS Premix IV ONE (12:39)
[2016-12-20] MEDS ORDERED: Heparin 1,000 Units/500 mL NS Premix IV ONE ×3 (12:39→14:34)
[2016-12-20] MEDS ORDERED: fentaNYL-PF 50 mCg/mL 2 mL Inj ONE (13:05)
[2016-12-20] MEDS ORDERED: Ondansetron 2 mg/mL 2 mL Inj ONE (14:28)
--- NOTE | 2016-12-20 14:45 | NUR ---
POST PROCEDURE NOTE RECEIVED FROM [employer] FACTORY WORKER. SEE FLOW SHEET
--- NOTE | 2016-12-20 15:24 | NUR ---
NITROGLYCERINE STARTED AT 5 MCG/MIN
[2016-12-20] MEDS ORDERED: Nitroglycerin 50 mg/250 mL D5W Premix IV SCH (15:25)
[2016-12-20] MEDS ORDERED: HYDROmorphone 1 mg/mL Inj ONE (17:40)
--- NOTE | 2016-12-20 18:00 | CS94 ---
[address] [address] DIAGNOSTIC CARDIAC CATHETERIZATION PATIENT: SANDRA SHAFER : 1980 MR#: [id number] ADMIT: 12/19/2016 JOB ID: [id number] SERVICE DATE: 12/20/2016 PROCEDURES PERFORMED: 1. Coronary angiography. 2. Percutaneous intervention of the second obtuse marginal branch. INDICATIONS: A 36-year-old woman previously admitted here with cardiac cath revealing a non-flow limiting stenosis in the first obtuse marginal branch. Suspicion was for possible spontaneous dissection versus spasm about area of stenosis. She was discharged home on blood pressure medications as well as aspirin, Plavix, and a statin. She returned again with chest pain and elevated troponins once again. She presented for further assessment by cardiac catheterization. DESCRIPTION OF PROCEDURE: Informed consent was obtained. Patient brought to the catheterization laboratory. Bilateral groins were prepped and draped in the usual sterile fashion. The right femoral artery was anesthetized with lidocaine. Using micropuncture kit and modified Seldinger technique, access was obtained and a 5-Nigerian sheath was advanced. Next, a 5-Nigerian JL4 catheter was advanced over a wire and used to cannulate the left coronary and angiographic views obtained. Given findings of now near occlusive findings in the second obtuse marginal branch, an intervention was planned. The current 5-Nigerian sheath was exchanged out for a 6-Nigerian sheath. A 6-Nigerian CLS 3.5 guide was advanced over a wire and used to cannulate the left coronary and angiographic views obtained. Heparin was used for anticoagulation and ACT was checked to make sure it was therapeutic. Prowater wire would not advance initially, therefore this was passed through a 2-0 [id number] balloon. This was used to stabilize the wire position and fortunately this allowed passage of the distal vessel. There was some concern this might still represent a dissection. Next the 2 mm balloon was advanced in the area of stenosis with some inflation, which did provide some improved flow; however, the vessel was quite spastic and it was clear that it was not going to do well without stenting. IVUS was also planned for assessment; however, given significant difficulty passing a wire, there was concern about passing anything other than balloons and stents. So ultimately, gauging the size of the vessel and trying not to go too large given concern of possible dissection, a Vision 2 x 23 mm stent was advanced to the area stenosis and was deployed at six atmospheres. The delivery balloon was then pulled back and increased up to 10 atmospheres. Next an additional stent was required; therefore another Vision 2.25 x15 mm stent was advanced in the more proximal area and this was inflated up to eight atmospheres. There was significant pleating of the vessel related to the wire, therefore the wire was pulled back slightly and final angiographic view with intracoronary nitroglycerin was obtained and this revealed an excellent angiographic result, with no significant residual stenosis, no evidence of dissection, flow in the distal vessel. The case was ended. This sheath was placed in place with plans to remove it at a later time. There were no complications. FINDINGS: Coronaries: This is a left-dominant system. Left main: This is angiographically normal. First obtuse marginal branch: This is widely patent. Second obtuse marginal branch: The area of previous stenosis now appears to extend proximally and that there may be some staining to suggest a false lumen. The flow is now LUCÍA one. Left anterior descending artery: Limited views show this is widely patent. As noted, the vessel was wired with some difficulty, then ultimately balloon dilated with a 2 mm balloon, which did not help the appearance in the vessel. In fact, things looked worse. Therefore a 2 mm stent had to be applied to approximate coverage of the area of interest and this was inflated to nominal pressures followed by stenting with a 2.25 mm stent in the proximal area. After stenting and intracoronary nitroglycerin there is an excellent angiographic result with no significant residual stenosis, no evidence of dissection, and brisk flow in the artery. HEMODYNAMICS: Aortic pressure 130s to 150s over 90s to 100s. Heart rates in the 70s. MEDICATIONS GIVEN IN THE CASE: Please see the laborer cement gun placing record. The end of the case the patient was given a 60 mg loading dose of prasugrel as she had not been loaded on Plavix. IMPRESSION: Evidence for progression to a high-grade stenosis of the stenosis appreciated in the second obtuse marginal branch, which did not improve with balloon dilation and required stenting.
--- NOTE | 2016-12-20 18:42 | NUR ---
Sheath removed- quality control lab technician staff removed sheath from right groin and held pressure per protocol. Puncture site bruised and firm from prior heart cath done on 12/16/16. After pressure held, site is softer with no hematoma or bleeding noted. Dr Navarro felt groin site prior sheath removal and stated that the patient did not have a hematoma. Ativan 0.5mg IV given for complaint of nausea and discomfort when pressure was held. Patient was able to sleep for short while afterwards. Awake and eating supper now. Denies further pain or complaints of nausea.
--- NOTE | 2016-12-20 20:26 | NUR ---
Transfer note- Patient has denied further chest pressure or nausea. Right groin site stable. Patient tolerating diet and fluids. Transferred via bed to [facility]. Report given to iPppa Courtney RN.
[2016-12-21 01:54] VITALS: BP 136/75; PULSE 85; RESP 17; O2SAT 96
[2016-12-21 02:24] LABS: BASOPHILS % (AUTO) 0.2 % (0-3); EOSINOPHILS % (AUTO) 0.7 % (0-5); MONOCYTES % (AUTO) 9.1 % (4-12); Mean Corpuscular Hemoglobin 28.4 pg (27.0-35.0); Mean Corpuscular Volume 83.3 fL (81-100); NEUTROPHILS % (AUTO) 70.5 % (40-74); Platelet Count 189 bil/L (150-400)
[2016-12-21] MEDS: 0.9% Sodium Chloride 1,000 ML IV SCH (05:02)
--- NOTE | 2016-12-21 05:49 | NUR ---
Blood Pressure Nitro drip at 10mcg/min throughout shift without titration; SBP 140s shortly after arrival to floor from [facility] and decreased to approx. 120s-130s systolic throughout shift. Patient reported consistent headache at 3-4/10 when awake, but able to sleep between interventions. NS infusing at 125ml/hr per pre-procedure orders. VSS. Tele SR 60s-80s. Win catheter removed at HS; patient voiding spontaneously within four hours. 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 No drainage noted.
[2016-12-21] MEDS: Sodium Chloride LOK Flush 10 mL Syringe IVFLUSH SCH (07:33)
[2016-12-21 08:30] VITALS: BP 130/85; PULSE 90; RESP 19; O2SAT 98
--- NOTE | 2016-12-21 09:10 | PROG NOTE ---
[address] [address] PROGRESS NOTE PATIENT: SANDRA SHAFER : 1980 MR#: [id number] ADMIT: 12/19/2016 JOB ID: [id number] DATE: 12/21/2016 CHIEF COMPLAINT: The patient came in with recurrent chest pain. She was taken urgently to the labeling strategist yesterday and found that the previously nonlimiting flow stenosis is now near occlusive. Still cannot rule out dissection as a cause versus just plaque. However, because of her chest pain and the findings on catheterization, she had stents placed in this vessel. Two stents were placed to the same vessel to provide adequate coverage, and there was an excellent angiographic result. She was placed on nitroglycerin given some chest discomfort afterward, likely related to spasm. We are currently getting her off of the nitroglycerin. Today, she feels well. No chest pain, no nausea or shortness of breath. EKG is stable. PHYSICAL EXAMINATION: Blood pressure 136/75, heart rate 85, sats are 96% on room air. She is on nitro with these measurements. In general, in no acute distress. Speaking in full sentences without apparent shortness of breath. Head and neck exam: Normocephalic, atraumatic. Heart exam: Regular rate and rhythm. Lungs: Clear. Abdomen: Soft. Groin site looks good. No hematoma. Extremities: Warm without edema. LABORATORIES: Today, show white count 12.2, an H and H 11.6 and 34, platelets of 189,000. Chemistry today shows sodium 140, potassium 2.9, chloride and bicarb 105 and 9, respectively, BUN and creatinine 11.5 and 1. Other labs that I sent given her age include JUAN ALBERTO which is negative. Other tests are still pending including ANCA. Hematology shows that her sed rate was not elevated and her C. reactive protein also was not elevated. I have also sent a renin and aldosterone on her. IMPRESSION: The patient is doing well at this time. She has had no recurrent chest pain. She feels well. PLAN: Once we get her off nitroglycerin, we need to follow her pressures. She should go on some dose of metoprolol given the cardiac event. I spent some time speaking with her about the importance of taking the clopidogrel and aspirin every day without fail now that stents are placed. I gave her an additional prescription so that she does not run out. She can get up and walk around if she is feeling well and there is no other concerning findings. She may go home today. I will arrange for follow up with her.
--- NOTE | 2016-12-21 10:26 | PCM.DIMED ---
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 Diet Discharge Diet: No restrictions Activity Discharge Activity: Other (Avoid lifting anything over 10 lbs for at least 4 days. Advance activity as tolerated) Call your provider Call your provider for: Fever or Chills, Shortness of breath, Bleeding, Chest pain, Vomitting, Excessive diarrhea, Weakness (unilateral) Patient Instructions Patient Instructions You came to the hospital on 12/19/2016 with symptoms of recurrent chest pain. You were taken to the cardiac catheterization lab yesterday and Dr. Navarro found evidence that the previous vessel she had originally seen on the first catheterization had become more occluded. As a result, she placed two stents in that vessel and achieved excellent results. You were placed on nitroglycerin because of some chest discomfort afterwards. This morning, you report that your chest pain has resolved. We will be sending you home with Plavix (Clopidegrol), Aspirin, Metoprolol, Amlodipine and Atorvastatin. We recommend no heavy lifting for at least 4 days and advance your activity as tolerated. Please follow up with Dr. Navarro in a week and follow-up with your PCP within the next 2 weeks. Prior to discharge, Dr. Navarro ordered various lab tests to figure out the cause your problem. Follow up with her regarding your Aldosterone/Renin, ANCA, BMP, ANCA, plasma metanephrines Follow-up plan Please follow up with Dr. Navarro in 2 weeks. Follow up with her regarding your Aldosterone/Renin, ANCA, BMP, ANCA, plasma metanephrines Follow-up with your PCP within the next 2-3 weeks. Follow-up Provider: Kelli Navarro MD Follow-up with PCP in: 2 weeks Provider: Gina Harris MD Follow-up in: 2 weeks Dario Thomas MD 12/22/16 0748: Discharge Instructions Attending's Statement The patient was seen and examined together with Dr. Cohen on 12/21/2016 and I agree with the history, exam and plan as outlined in the note above. . Kristin Cohen DO Dec 21, 2016 10:10 Dario Thomas MD Dec 22, 2016 07:48
[2016-12-21] MEDS ORDERED: AMLO5TAB2 PO (10:28)
--- NOTE | 2016-12-21 11:05 | NUR ---
Nitro gtt Nitro was discontinued at [address] Navarro. Reevaluated pt at 1000 and BP was 132/88, HR 84 with no complaints of chest pressure. Will continue to monitor.
[2016-12-21 11:18] VITALS: PULSE 76
--- NOTE | 2016-12-21 12:00 | NUR ---
Social Work: Discharge/Multidisciplinary Rounds D: Pt discussed in multidisciplinary rounds. The patient is medically stable for discharge. Capacity for self-care and d/c needs addressed. No concerns or needs identified. Pt is ambulating I and I with self care. FLAKE C[employer]TER OPERATOR met with patient at bedside to confirm d/c plan. She has no concerns and is eager to discharge. Nursing to review discharge ppw and follow up appointments with the patient. A: pt who is ambulating I and managing all her own care. P: Pt to discharge home today via POV and no sw needs. QIANA Omalley
[2016-12-21 12:41] VITALS: BP 132/90; PULSE 84; RESP 12; O2SAT 98
--- NOTE | 2016-12-21 13:15 | NUR ---
Discharge Pt left with at 1345. All belongings taken with, IV x2 and tele removed. All discharge instructions gone over and understood. All questions answered. Right groin unchanged from this morning. Prescriptions and work note sent with patient.
--- NOTE | 2016-12-21 15:48 | PCM.DC.MED ---
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 Dictated by: David Hendricks M.D. on 12/20/2016 at 8:10 Approved by: David Hendricks M.D. on 12/20/2016 at 8:11 Other Diagnostics Cardiac catheterization: IMPRESSION: Evidence for progression to a high-grade stenosis of the stenosis appreciated in the second obtuse marginal branch, which did not improve with balloon dilation and required stenting. Kelli Navarro MD 12/20/16 3636 Brief History Per H&P by Dr. Vieyra: Sheri Kulkarni is a 36 year old female with recently diagnosed Non ST elevation Myocardial infarction and Hypertension now presents to [facility] emergency department complaining of chest pain. The patient was at work and was sitting down when she felt acute onset of chest pain. She describes it as a sharp pain radiating to her back, similar to her previous chest pain. Denies any diaphoresis or dyspnea. The pt denies nausea, vomiting, cough, heartburn pain or lower extremity edema. This has been accompanied by abnormally high blood pressure (she has been taking her BP since discharged and has been elevated, approximately 150/110). She just began taking Metoprolol recently and has taken one dose of Plavix. Case discussed with Dr Varela, BP still elevated. He spoke to Dr Uribe who recommended adding Amlodipine. Troponin also elevated and patient will be admitted for trending troponin and BP management Hospital Course Sheri Kulkarni is a 36 year old female with recently diagnosed Non ST elevation Myocardial infarction and Hypertension who presented to [facility] emergency department complaining of chest pain and was found to have elevated cardiac biomarkers that were trending up. She underwent a cardiac catheterization with Dr. Navarro and was found to have evidence for progression to a high-grade stenosis of the stenosis appreciated in the second obtuse marginal branch, which did not improve with balloon dilation and required stenting. Per cardiology,two stents were placed to the same vessel to provide adequate coverage, and there was an excellent angiographic result. 1. Acute Chest pain with recent Non-ST elevation myocardial infarction, present on admission Patient was found to have small tubular segment in the second obtuse marginal branch which is not flow limiting. Possible spasm was suspected and Dr Navarro recommended dual antiplatelet, beta tommie and statin. Drug screen showed no cocaine abuse. Concern is that troponin level is high than her last one prior to discharge - trending Cardiac biomarkers overnight - no indications for Heparin drip at this time - continue antiplatelet therapy with Aspirin 81 mg daily and Plavix 75 mg daily - continue Atorvastatin 20 mg -Cardiology was consulted and their input is appreciated -She underwent another cath with Dr. Navarro on 12/20/16. She found evidence for progression to a high-grade stenosis of the stenosis appreciated in the second obtuse marginal branch, which did not improve with balloon dilation and required stenting. -Follow up with cardiology regarding Aldosterone/Renin, ANCA, BMP, ANCA, plasma metanephrines 2 Uncontrolled hypertension. Present on admission - continue Metoprolol 25 mg twice a day - adding Amlodipine 10 mg daily, additional effect in helping with coronary spasm - Acetaminophen as needed for mild pain/fever/headache - Bowel regimen as needed - Antiemetic as needed Patient admitted under inpatient status with expected length of stay > 2 midnights for severity of present symptoms, complexities of treatment plan and risk for adverse event . Exam Vital Signs (Last) Date Time Temp Pulse Resp B/P Pulse Ox O2 Delivery O2 Flow Rate FiO2 12/21/16 12:41 36.5 84 12 132/90 98 Room Air Exam General: Patient is lying comfortably on bed, AAOX3, not in acute distress, cooperative and pleasant. HEENT: head normocephalic and atraumatic, PERRLA, EOMI, no scleral icterus, noninjected conjunctiva Neck: neck supple, non-tender, no lymphadenopathy, trachea midline, no JVD CV: regular rate and rhythm, s1 and s2 heard, no murmur, radial pulses 2+ and equal bilaterally, no rubs murmurs or gallops, no edema Lungs: Clear to auscultation bilaterally, no wheezes, rales or rhonchi, no increased work of breathing Abdomen: normoactive bowel sounds on 4Q, soft, non-distended, non-tender to palpation, no organomegally, Skin: warm and dry, bandage over right groin from cardiac cath Musculoskeletal: 5/5 UE and LE strength bilaterally, full ROM bilaterally Neuro: Grossly neurologically intact, cranial nerves II through XII intact, sensation intact in extremities Psych: Normal mood and affect Test 12/19/16 22:29 12/19/16 22:42 12/20/16 05:30 12/20/16 12:50 Magnesium Level 1.8mg/dL (1.6-2.6) Pro-B-Type Natriuretic Peptide 84.19pg/mL (0-130) Hold Cullen Top Tube Received (Received) Total Creatine Kinase 354U/L (21-215) Creatine Kinase MB 47.0ng/mL (0.0-5.3) Creatine Kinase MB % 13.3% (0.0-5.0) Troponin T 0.136ug/L (0.0-0.011) Erythrocyte Sedimentation Rate 21mm/hr (0-32) C-Reactive Protein 0.2mg/dL (0.0-0.5) Anti-Nuclear Antibody Screen Negative (Negative) Test 12/21/16 02:03 12/21/16 08:47 White Blood Count 12.2th/mm3 (3.8-10.1) Red Blood Count 4.08mil/mm3 (3.90-5.20) Hemoglobin 11.6g/dL (12.0-15.6) Hematocrit 34.0% (35.0-46.0) Mean Corpuscular Volume 83.3fL (81-100) Mean Corpuscular Hemoglobin 28.4pg (27.0-35.0) Mean Corpuscular Hemoglobin Concent 34.1% (32.0-37.0) Red Cell Distribution Width 11.9% (12.3-15.4) Platelet Count 189bil/L (150-400) Neutrophils (%) (Auto) 70.5% (40-74) Lymphocytes (%) (Auto) 19.3% (14-46) Monocytes (%) (Auto) 9.1% (4-12) Eosinophils (%) (Auto) 0.7% (0-5) Basophils (%) (Auto) 0.2% (0-3) Sodium Level 140mEq/L (134-144) Potassium Level 3.9mEq/L (3.5-5.2) Chloride Level 105mEq/L (97-108) Carbon Dioxide Level 19mmol/L (18-29) Blood Urea Nitrogen 11mg/dL (6-20) Creatinine 0.51mg/dL (0.57-1.00) Estimat Glomerular Filtration Rate 193mL/min (>59) Glucose Level 110mg/dL (60-99) Calcium Level 8.8mg/dL (8.5-10.1) Total Bilirubin 0.4mg/dL (0.0-1.2) Aspartate Amino Transf (AST/SGOT) 56U/L (0-50) Alanine Aminotransferase (ALT/SGPT) 16U/L (0-32) Alkaline Phosphatase 87U/L (25-150) Total Protein 6.4g/dL (6.4-8.4) Albumin 4.0g/dL (3.4-5.0) Discharge Medications Discharge Medications Amlodipine (Amlodipine) 5 Mg Tablet 10 MG PO DAILY Prescribed by: Carol CHACON Aspirin (Aspirin) 81 Mg Tablet 81 MG PO DAILY Prescribed by: OLEG WOLFE DO Atorvastatin (Lipitor) 20 Mg Tablet 20 MG PO DAILY Prescribed by: OLEG WOLFE DO Clopidogrel Bisulfate (Plavix) 75 Mg Tablet 75 MG PO DAILY Prescribed by: OLEG WOLFE DO Metoprolol Tartrate (Metoprolol Tartrate) 25 Mg Tablet 25 MG PO BID Prescribed by: OLEG WOLFE DO Vit C/E/Zn/Coppr/Lutein/Zeaxan (Preservision Areds 2 Softgel) 1 Each Capsule 1 EACH PO BID (Reported) Additional med instructions Please make sure that you take Clopidogrel and Aspirin every day without fail now that stents are placed. Followup Plan Disposition: Patient is stable and will be discharged home Follow-up plan Please follow up with Dr. Navarro in 2 weeks. Follow up with her regarding your Aldosterone/Renin, ANCA, BMP, ANCA, plasma metanephrines Follow-up with your PCP within the next 2-3 weeks. Discharge Diet: No restrictions Discharge Activity: Other (Avoid lifting anything over 10 lbs for at least 4 days. Advance activity as tolerated) Patient Instructions You came to the hospital on 12/19/2016 with symptoms of recurrent chest pain. You were taken to the cardiac catheterization lab yesterday and Dr. Navarro found evidence that the previous vessel she had originally seen on the first catheterization had become more occluded. As a result, she placed two stents in that vessel and achieved excellent results. You were placed on nitroglycerin because of some chest discomfort afterwards. This morning, you report that your chest pain has resolved. We will be sending you home with Plavix (Clopidegrol), Aspirin, Metoprolol, Amlodipine and Atorvastatin. We recommend no heavy lifting for at least 4 days and advance your activity as tolerated. Please follow up with Dr. Navarro in a week and follow-up with your PCP within the next 2 weeks. Prior to discharge, Dr. Navarro ordered various lab tests to figure out the cause your problem. Follow up with her regarding your Aldosterone/Renin, ANCA, BMP, ANCA, plasma metanephrines Follow-up Provider: Kelli Navarro MD Follow-up with PCP in: 2 weeks Provider: Gina Harris MD Follow-up in: 2 weeks Time spent Greater than 30 minutes was spent in preparation of discharge with greater than 50% of that time dedicated to patient counseling and coordination of care. . Attending Statement The patient was seen and examined together with Dr. Cohen on 12/21/2016 and I agree with the history, exam and plan as outlined in the note above. . copies to: Kelli Navarro MD; Gina Harris MD, Alexa N DO Dec 21, 2016 15:48 Dario Thomas MD Dec 22, 2016 07:48
[2016-12-22 14:10] LABS: Antiproteinase 3 (PR-3) Abs <3.5 U/mL (0.0-3.5); Perinuclear (P-ANCA) <1:20 titer (Neg:<1:20)
[2016-12-25 13:07] LABS: Aldosterone/Renin Ratio 6.1 (0.0-30.0); Renin Activity 0.312 ng/mL/hr (0.167-5.380)
== END 2016-12-21 13:00 | disposition home or self-care (01) | DRG 248 ==
LOC: SED 22:02 → PCC 23:50
PROVIDERS: ADMIT Hospitalist; ATTEND Internal Medicine
PROC: 02713EZ Dilation of Coronary Artery, Two Arteries with Two Intraluminal Devices, Percutaneous Approach (ICD-10-PCS; principal; 2016-12-20)
PROC: 4A023N7 Measurement of Cardiac Sampling and Pressure, Left Heart, Percutaneous Approach (ICD-10-PCS; 2016-12-20)
PROC: B2101ZZ Fluoroscopy of Single Coronary Artery using Low Osmolar Contrast (ICD-10-PCS; 2016-12-20)
DX: I25.10 Atherosclerotic heart disease of native coronary artery without angina pectoris (principal); I21.4 Non-ST elevation (NSTEMI) myocardial infarction; I10 Essential (primary) hypertension; Z79.82 Long term (current) use of aspirin; Z87.891 Personal history of nicotine dependence; Z82.49 Family history of ischemic heart disease and other diseases of the circulatory system